=== PATIENT | male | born 1970 | race Caucasian/White ===

== ENCOUNTER → 2024-12-27 | Day surgery (SDC) | payer MEDICAID ==
[~2024-12-27] VITALS: Ht 167.6 cm; Wt 83.0 kg
[~2024-12-27] MED LIST: BUPIVACAINE HCL/PF 0.5% (5MG/ML) 10ML ONE; DEXAMETHASONE 4MG/ML 1ML VIAL ONE; FENTANYL CITRATE/PF 50MCG/ML 2ML VIAL ONE; LABETALOL 5MG/ML 4ML INJ IV PRN; LACTATED RINGERS 1,000 ML IV SCH; MEPERIDINE HCL/PF 25MG/ML CPJ IV PRN; MIDAZOLAM HCL 2 MG/2 ML VIAL ONE; OMEP20TA23 PO; ONDANSETRON HCL 4MG/2ML INJ ONE; PROPOFOL 200MG/20ML VIAL IV ONE; SKIN ADHESIVE 0.7 GM EA TOP ONE
[2024-12-27] MEDS: ONDANSETRON HCL 4MG/2ML INJ IV PRN (08:51)
[2024-12-27] MEDS: HYDROMORPHONE HCL/PF 1MG/ML INJ IV PRN (08:52)
[2024-12-27] MEDS: BUPIVACAINE HCL 0.5% 290 ML in ON-Q PM015 DRUG DELIV DEVICE 1 EA IR STA (09:24)
[2024-12-27 10:09] VITALS: BP 133/81; PULSE 96; RESP 18
[2024-12-27] MEDS: ACETAMINOPHEN WITH CODEINE 300/30MG TABLET PO NR (10:09)
[2024-12-27] MEDS: SCOPOLAMINE HYDROBROMIDE PATCH 72HR TD NR (11:18)
== END | disposition home or self-care (01) ==
LOC: OR 05:31
PROVIDERS: ATTEND Surgery
DX: K40.90 Unilateral inguinal hernia, without obstruction or gangrene, not specified as recurrent (principal); Z79.899 Other long term (current) drug therapy; Z98.890 Other specified postprocedural states
CPT/HCPCS: 49505; 88302; J3010; J0665; J3490; J1100; J2250; J2405; J2704; J1171; C1781